=== PATIENT | male | born 1940 | race Caucasian/White ===

== ENCOUNTER 2018-02-12 18:05 | Inpatient (IN) | payer MEDICARE, BC ==
[~2018-02-12] VITALS: Ht 167.6 cm; Wt 92.9 kg
[~2018-02-12 18:05] MED LIST: ASPI-1265 PO; ATOR40TA PO; CHOL10008 PO; CLOP75TA33 PO; CYAN500L3 SL; FENO160T PO; FLUO10CA66 PO; GABA600T2 PO; INSU100V36 SQ; INSU300I SQ; ISOS30TA9 PO; METF-438 PO; METO25TA6 PO; NITR0.4T51 SL; OMEG1CAP21 PO
[2018-02-12] MEDS ORDERED: celeCOXIB 100mg capsule PO ONE (18:50)
[2018-02-12 19:00] LABS: BASOPHILS # (AUTO) 0.1 X10'3 (0-0.2); BASOPHILS % (AUTO) 0.9 % (0-1); EOSINOPHILS # (AUTO) 0.2 X10'3 (0-0.9); EOSINOPHILS % (AUTO) 2.2 % (0-6); HEMATOCRIT 39.7 % (42.0-52.0); HEMOGLOBIN 13.3 g/dl (14.0-17.9); LYMPHOCYTES % (AUTO) 13.3 % (21-51); MEAN CORPUSCULAR HGB CONC 33.6 % (33.0-36.5); MEAN CORPUSCULAR VOLUME 92.2 FL (78-98); MEAN PLATELET VOLUME 8.8 FL (7.4-10.4); MONOCYTES # (AUTO) 1.2 X10'3 (0-0.9); MONOCYTES % (AUTO) 16.2 % (2-12); NEUTROPHILS # (AUTO) 4.9 X10'3 (1.8-7.7); NEUTROPHILS % (AUTO) 67.4 % (42-75); PLATELET COUNT 345 X10'3 (140-440); RED BLOOD COUNT 4.31 X10'6 (4.70-6.10); RED CELL DISTRIBUTION WIDTH 14.4 % (11.5-14.5); WHITE BLOOD COUNT 7.3 X10'3 (4.5-11.0)
[2018-02-12 19:08] LABS: PROTHROMBIN TIME 10.4 SECONDS (9.0-12.0)
[2018-02-12 19:12] LABS: ALANINE AMINOTRANSFERASE 68 U/L (12-78); ALBUMIN 3.5 G/DL (3.4-5.0); ALKALINE PHOSPHATASE 73 IU/L (46-116); ANION GAP 12 (8-16); ASPARTATE AMINO TRANSFERASE 57 U/L (10-37); BILIRUBIN,TOTAL 0.2 MG/DL (0.1-1.0); BLOOD UREA NITROGEN 20 MG/DL (7-18); BUN/CREATININE RATIO 19.6 (5.4-32.0); CALCIUM 9.3 MG/DL (8.5-10.1); CHLORIDE 99 MMOL/L (99-107); CREATININE 1.02 MG/DL (0.60-1.10); SODIUM 138 MMOL/L (135-145); TOTAL CARBON DIOXIDE 27.5 MMOL/L (24-32); TOTAL PROTEIN 7.1 G/DL (6.4-8.2); eGFR 71 ML/MIN
[2018-02-12 19:19] LABS: GLUCOSE 234 MG/DL (70-104); POTASSIUM 4.4 MMOL/L (3.5-5.1)
[2018-02-12] MEDS ORDERED: INSU100C4 SQ (19:44)
[2018-02-12] MEDS ORDERED: INSU300I3 SQ (19:44)
[2018-02-12] MEDS ORDERED: ONDA8TAB13 PO (19:44)
[2018-02-12] MEDS ORDERED: ATOR40TA71 PO (19:44)
[2018-02-12] MEDS ORDERED: HYDROcodone/acetaminophen 5mg/325mg tablet PO ONE (20:00)
[2018-02-12] MEDS ORDERED: nitroGLYCERIN 0.4mg/hour patch TD ONE (21:05)
[2018-02-12] MEDS ORDERED: HYDROcodone/acetaminophen 10/325mg tab PO PRN (21:50)
[2018-02-12] MEDS ORDERED: ondansetron/PF 4mg/2ml inj IV PRN (21:50)
[2018-02-12] MEDS ORDERED: magnesium hydroxide 30ml (MOM) UD suspension PO PRN (21:50)
[2018-02-12] MEDS ORDERED: morphine 2 MG/ML inj. syringe IV PRN (21:50)
[2018-02-12] MEDS ORDERED: acetaminophen 325mg tablet PO PRN (21:50)
[2018-02-12] MEDS ORDERED: mag hydrox/Alum hydrox/simeth 30ml oral suspension PO PRN (21:50)
[2018-02-12] MEDS ORDERED: nitroGLYCERIN 0.4mg SUBLingual tab SL PRN (21:55)
[2018-02-12] MEDS ORDERED: MESSAGE TO PHARMACY PO ONE (21:55)
[2018-02-12] MEDS ORDERED: insulin Lispro (HumaLOG) vial - multi-dose SQ SCH (21:55)
[2018-02-12] MEDS ORDERED: dextrose ORAL solution 15 GM/59 ML bottle PO PRN ×2 (21:55)
[2018-02-12] MEDS ORDERED: glucagon, human recombinant 1mg kit SUBCUT PRN (21:55)
[2018-02-12] MEDS ORDERED: dextrose 50%-water 50ml dispensing syringe IV PRN ×2 (21:55)
[2018-02-12 22:52] LABS: HEMOGLOBIN A1C 7.7 % (4.5-6.2)
[2018-02-12 23:00] VITALS: BP 110/59
[2018-02-13 01:27] LABS: ALANINE AMINOTRANSFERASE 58 U/L (12-78); ALBUMIN 3.2 G/DL (3.4-5.0); ALKALINE PHOSPHATASE 64 IU/L (46-116); ANION GAP 10 (8-16); ASPARTATE AMINO TRANSFERASE 49 U/L (10-37); BILIRUBIN,TOTAL 0.3 MG/DL (0.1-1.0); BLOOD UREA NITROGEN 19 MG/DL (7-18); CALCIUM 9.1 MG/DL (8.5-10.1); CHLORIDE 102 MMOL/L (99-107); SODIUM 138 MMOL/L (135-145); TOTAL CARBON DIOXIDE 25.8 MMOL/L (24-32); TOTAL PROTEIN 6.5 G/DL (6.4-8.2); eGFR 72 ML/MIN
[2018-02-13 01:29] LABS: GLUCOSE 164 MG/DL (70-104)
[2018-02-13 01:32] LABS: BASOPHILS % (AUTO) 0.5 % (0-1); EOSINOPHILS # (AUTO) 0.1 X10'3 (0-0.9); EOSINOPHILS % (AUTO) 1.8 % (0-6); HEMATOCRIT 36.3 % (42.0-52.0); HEMOGLOBIN 12.3 g/dl (14.0-17.9); LYMPHOCYTES # (AUTO) 0.9 X10'3 (1.1-4.8); LYMPHOCYTES % (AUTO) 10.8 % (21-51); MEAN CORPUSCULAR HEMOGLOBIN 31.2 PG (27.0-31.0); MEAN CORPUSCULAR HGB CONC 33.8 % (33.0-36.5); MEAN CORPUSCULAR VOLUME 92.1 FL (78-98); MEAN PLATELET VOLUME 8.7 FL (7.4-10.4); MONOCYTES # (AUTO) 1.3 X10'3 (0-0.9); MONOCYTES % (AUTO) 16.4 % (2-12); NEUTROPHILS # (AUTO) 5.7 X10'3 (1.8-7.7); NEUTROPHILS % (AUTO) 70.5 % (42-75); PLATELET COUNT 321 X10'3 (140-440); RED BLOOD COUNT 3.94 X10'6 (4.70-6.10); RED CELL DISTRIBUTION WIDTH 14.1 % (11.5-14.5); WHITE BLOOD COUNT 8.1 X10'3 (4.5-11.0)
[2018-02-13] MEDS: gabapentin 300mg capsule PO SCH ×2 (01:40→09:30)
[2018-02-13 02:13] LABS: PLATELET ESTIMATE NORMAL; TOTAL CELLS COUNTED 100
[2018-02-13 03:00] VITALS: BP 97/46
[2018-02-13 06:00] VITALS: BP 117/60
[2018-02-13] MEDS ORDERED: heparin, porcine 5000 units/ml vial SQ SCH (08:00)
[2018-02-13] MEDS ORDERED: atorvastatin 20mg tablet PO SCH (08:00)
[2018-02-13] MEDS ORDERED: aspirin 81mg tab.chew PO SCH (08:00)
[2018-02-13 10:08] LABS: D-DIMER 0.81 MG/L FEU (0-0.50)
[2018-02-13] MEDS ORDERED: HYDR-3965 PO (11:01)
[2018-02-13] MEDS ORDERED: iohexol 350MG/ML 100ml bottle IV ONE (11:36)
[2018-02-13] MEDS ORDERED: insulin glargine (Lantus) pen - multi-dose SQ SCH (21:00)
== END 2018-02-13 14:41 | disposition home or self-care (01) | DRG 313 ==
LOC: ER 18:06 → ED HOLD 21:48 → PCU 3S 22:50
PROVIDERS: ADMIT Internal Medicine; ATTEND Internal Medicine
PROC: B32T1ZZ Computerized Tomography (CT Scan) of Left Pulmonary Artery using Low Osmolar Contrast (ICD-10-PCS; principal; 2018-02-13)
PROC: B3201ZZ Computerized Tomography (CT Scan) of Thoracic Aorta using Low Osmolar Contrast (ICD-10-PCS; 2018-02-13)
PROC: B32S1ZZ Computerized Tomography (CT Scan) of Right Pulmonary Artery using Low Osmolar Contrast (ICD-10-PCS; 2018-02-13)
DX: R07.89 Other chest pain (principal); C88.0 Waldenstrom macroglobulinemia; E78.00 Pure hypercholesterolemia, unspecified; E78.5 Hyperlipidemia, unspecified; I25.10 Atherosclerotic heart disease of native coronary artery without angina pectoris; R74.8 Abnormal levels of other serum enzymes; E11.9 Type 2 diabetes mellitus without complications; R29.6 Repeated falls; Z79.4 Long term (current) use of insulin; Z79.82 Long term (current) use of aspirin; Z79.899 Other long term (current) drug therapy; Z79.84 Long term (current) use of oral hypoglycemic drugs; Z91.018 Allergy to other foods; Z85.72 Personal history of non-Hodgkin lymphomas; Z82.3 Family history of stroke; Z80.8 Family history of malignant neoplasm of other organs or systems
CPT/HCPCS: 36415; 71045; 71275; 80053; 82948; 83036; 83880; 84484; 85025; 85379; 85610; 87070; 93005; 99285; J1644; J1815; Q9967

== ENCOUNTER 2018-07-18 19:42 | Inpatient (IN) | payer MEDICARE, BC | END 2018-07-21 13:35 | disposition home or self-care (01) | LOC: ER 19:42 → ED HOLD 07-19 01:28 → PCU 3S 07-19 02:30 | PROC: 4A023N7 Measurement of Cardiac Sampling and Pressure, Left Heart, Percutaneous Approach (ICD-10-PCS; principal; ~2018-07-18) | PROC: B215YZZ Fluoroscopy of Left Heart using Other Contrast (ICD-10-PCS; ~2018-07-18) | PROC: B211YZZ Fluoroscopy of Multiple Coronary Arteries using Other Contrast (ICD-10-PCS; ~2018-07-18) | DX: I21.4 Non-ST elevation (NSTEMI) myocardial infarction (principal); C85.90 Non-Hodgkin lymphoma, unspecified, unspecified site; I50.22 Chronic systolic (congestive) heart failure ==